=== PATIENT | female | born 1940 | race African-American/Black ===

== ENCOUNTER → 2017-04-11 | Outpatient (CLI) | payer MEDICARE, OTHER ==
--- NOTE | ~2017-04-11 | MY11 ---
[facility] A Service of [facility] RADIOLOGY TEXT RESULTS PATIENT: JOHN RILEY LOCATION: [facility] : 38 UNIT #: [id number] AGE: [address]: VANNA OSMAN MD SEX: F ORDER DR: [id number] [facility] [address] [place], [place] [address] [id number] O MR#: [id number] #: [id number] NAME: JOHN RILEY : 1940 SEX: F STUDY DATE/TIME: 04/11/2017 11:25 UNIT: [facility] ROOM: STUDY DESCRIPTION: MY Mammogram Screening Dig Archie Attending Physician: Vanna Osman M.D. Referring Physician: Vanna Osman M.D. Ordering Physician: Vanna Osman M.D. Primary Care Physician: Vanna Osman M.D. MEDICAL IMAGING REPORT This report is preliminary unless electronic signature is present EXAM Digital screening mammogram 04/11/2017 HISTORY 76-year-old woman positive family history, mother. Annual screen. COMPARISON Mammograms date to 01/25/2011 with most recent 04/08/2016. FINDINGS Digital imaging of each breast was completed utilizing a two-view examination of each breast in craniocaudal and mediolateral-oblique projections. Review and interpretation of digital mammograms include a second review in conjunction with FDA-approved CAD device. There is a normal parenchymal presentation bilaterally consistent with the patient's age. There are no breast masses imaged and no parenchymal asymmetry is visualized. There are no suspicious microcalcifications and I see no focal architectural disturbance. IMPRESSION Negative screening digital mammogram. One-year followup recommended. Patients over the age of 40 are entered into a reminder system with target due date for the next mammogram. A result letter will also be sent to the patient. BIRADS: 1 Negative Dictated by... Christopher Jones M.D. [facility] A Service [facility] RADIOLOGY TEXT RESULTS PATIENT: JOHN RILEY LOCATION: [facility] : 39 UNIT #: [id number] AGE: [address]: VANNA OSMAN MD SEX: F ORDER DR: THIS IS AN ELECTRONICALLY VERIFIED REPORT Christopher Jones M.D. at 04/11/2017 2:25 PM Basil TD: 04/11/2017 12:44 JOB #: [id number] MEDICAL IMAGING REPORT Page 1 of 1 COPY
== END | disposition home or self-care (01) ==
LOC: CWCC 03-29 12:00
DX: Z12.31 Encounter for screening mammogram for malignant neoplasm of breast (principal); Z80.3 Family history of malignant neoplasm of breast
CPT/HCPCS: G0202

== ENCOUNTER 2017-05-14 13:26 | Emergency (ER) | payer MEDICARE, OTHER ==
--- NOTE | ~2017-05-14 | CT71 ---
[facility] A Service of [facility] RADIOLOGY TEXT RESULTS PATIENT: JOHN RILEY LOCATION: [place] : 38 UNIT #: [id number] AGE: [address]: ARIANNE CORREA SEX: F ORDER DR: [id number] [facility] [address] [place], [place] [address] [id number] MR#: [id number] Acc #: [id number] NAME: JOHN RILEY : 1940 SEX: F STUDY DATE/TIME: 05/14/2017 14:48 UNIT: [place] ROOM: STUDY DESCRIPTION: CT Head Wo Contrast Attending Physician: Arianne Correa A.P.R.N. Ordering Physician: Christian Correa Primary Care Physician: Milton Duron M.D. MEDICAL IMAGING REPORT This report is preliminary unless electronic signature is present EXAM Head CT without HISTORY Left frontal pain left ear pain since 05/13/2017. History of hypertension, routine noncontrast head CT is reviewed. There is no prior. TECHNIQUE This CT exam was performed with one or more of the following radiation dose reduction techniques: automatic control, adjustment of mA and/or kV according to patient size, and iterative reconstruction. COMMENT The visualized mastoid air cells and paranasal sinuses are clear. There is atrophy in general with somewhat disproportionate volume loss in the posterior fossa and possibly the medial frontal lobes. There is no evidence for acute intracranial hemorrhage or extraaxial fluid collection. There is mild periventricular white matter low-attenuation which is nonspecific but probably due to small vessel disease. No acute intracranial hemorrhage or extraaxial fluid collection or intracranial mass effect is suspected. Portion of the study had to be repeated because of patient motion artifact. There is what is probably a dense dural calcification overlying the left frontal lobe superomedially. IMPRESSION 1. Atrophy and mild probable sequelae of small vessel disease. No acute intracranial abnormalities appreciated but if there is clinical concern for acute CVA followup imaging would be recommended preferably with an MRI if the patient is a candidate. Dictated by... Camille Ross M.D. [facility] A Service of [facility] RADIOLOGY TEXT RESULTS PATIENT: JOHN RILEY LOCATION: [place] : 38 UNIT #: [id number] AGE: [address]: ARIANNE CORREA SEX: F ORDER DR: THIS IS AN ELECTRONICALLY VERIFIED REPORT Camille Ross M.D. at 05/15/2017 7:30 AM SHEILA/rhonda TD: 05/14/2017 23:59 JOB #: [id number] MEDICAL IMAGING REPORT Page 1 of 1 COPY
== END 2017-05-14 15:45 | disposition home or self-care (01) ==
LOC: CED 13:26 → CFTX 13:26
DX: H60.92 Unspecified otitis externa, left ear (principal); I10 Essential (primary) hypertension; F17.200 Nicotine dependence, unspecified, uncomplicated
CPT/HCPCS: 70450; 99283